=== PATIENT | female | born 1965 ===

== ENCOUNTER 2017-12-23 07:51 | Day surgery (SDC) | payer OTHER ==
[2017-12-23] MEDS ORDERED: Lactated Ringer's 500 ML IV ONE (08:27)
[2017-12-23] MEDS ORDERED: Propofol 10 mg/ml Inj (20 ML) ONE (10:21)
[2017-12-23 10:56] VITALS: TEMP 97.5
[2017-12-23 11:04] VITALS: BP 108/49; PULSE 76; RESP 18; O2SAT 98
== END 2017-12-23 11:00 | disposition home or self-care (01) ==
LOC: H.ENDO 07:51
PROVIDERS: ATTEND Internal Medicine Gastroenterology
DX: Z12.11 Encounter for screening for malignant neoplasm of colon (principal); K64.8 Other hemorrhoids
CPT/HCPCS: 45378; J2704; J7120